=== PATIENT | female | born 1970 | race Caucasian/White ===

== ENCOUNTER 2017-07-08 21:06 | Emergency (ER) | payer MEDICARE, MEDICAID ==
[~2017-07-08] VITALS: Ht 160 cm; Wt 59.0 kg
[~2017-07-08 21:06] MED LIST: ACYC400T; BENZ1TAB2; ESCI10TA; QUET50TA; [UNRECOGNIZED DRUG - OTHER]
[2017-07-08 21:42] LABS: Basophils # (auto) 0.1 uL; Basophils % (auto) 1.1 % (0.0-2.0); Eosinophils # (auto) 0 uL; Eosinophils % (auto) 0.6 % (0.0-7.0); Hematocrit 37.7 % (36.0-46.0); Hemoglobin 12.7 g/dL (12.2-16.2); Lymphocytes # (auto) 1.9 uL; Lymphocytes % (auto) 35.5 % (10.0-50.0); Mean Corpuscular Hemoglobin 32.7 pg (28.0-32.0); Mean Corpuscular Hgb Conc. 33.7 g/dL (32.0-36.0); Mean Corpuscular Volume 97.1 fL (80.0-100.0); Monocytes # (auto) 0.5 uL; Monocytes % (auto) 8.9 % (0.0-12.0); Neutrophils # (auto) 2.9 uL; Neutrophils % (auto) 53.9 % (37.0-80.0); Nucleated Red Blood Cells % 0.1 %; Platelet Count (auto) 212 10^3/uL (140-450); Red Blood Cells 3.88 10^6/uL (4.0-5.20); Red Cell Distribution Width 13.4 % (11.8-14.3); White Blood Cell 5.3 10^3/uL (4.4-10.8)
[2017-07-08 21:58] LABS: Salicylate 2.3 mg/dL (2.8-20.0)
[2017-07-08 22:01] LABS: Alanine Aminotransferase 13 U/L (13-56); Albumin 3.7 g/dL (3.4-5.0); Alkaline Phosphatase 88 U/L (45-117); Anion Gap 7 (5-15); Aspartate Aminotransferase 12 U/L (15-37); BUN/Creatinine Ratio 12.8; Bilirubin, Total 0.3 mg/dL (0.2-1.0); Blood Alcohol < 3.0 mg/dL (0-5); Blood Urea Nitrogen 10 mg/dL (7-18); Calcium 8.6 mg/dL (8.5-10.1); Carbon Dioxide 28 mmol/L (21-32); Chloride 104 mmol/L (98-107); GFR African American 101 mL/min; GFR Non-African American 84 mL/min; Glucose 96 mg/dL (74-106); Potassium 3.4 mmol/L (3.5-5.1); Sodium 139 mmol/L (136-145); Total Protein 7.2 g/dL (6.4-8.2)
[2017-07-08 22:04] LABS: Acetaminophen < 2.0 ug/mL (10-30)
[2017-07-09] MEDS ORDERED: SODIUM CHLORIDE 0.9% 1,000 ML IV ONE ×2 (08:07)
[2017-07-09] MEDS ORDERED: THIAMINE HCL 100 MG/ML 2ML VIAL IV ONE (08:15)
[2017-07-09 09:04] LABS: Basophils # (auto) 0 uL; Basophils % (auto) 0.2 % (0.0-2.0); Eosinophils # (auto) 0 uL; Eosinophils % (auto) 0.8 % (0.0-7.0); Hematocrit 37.8 % (36.0-46.0); Hemoglobin 12.8 g/dL (12.2-16.2); Lymphocytes # (auto) 1.6 uL; Lymphocytes % (auto) 40.9 % (10.0-50.0); Mean Corpuscular Hemoglobin 32.9 pg (28.0-32.0); Mean Corpuscular Hgb Conc. 33.8 g/dL (32.0-36.0); Mean Corpuscular Volume 97.2 fL (80.0-100.0); Monocytes # (auto) 0.4 uL; Monocytes % (auto) 9.5 % (0.0-12.0); Neutrophils # (auto) 1.9 uL; Neutrophils % (auto) 48.6 % (37.0-80.0); Platelet Count (auto) 214 10^3/uL (140-450); Red Blood Cells 3.89 10^6/uL (4.0-5.20); Red Cell Distribution Width 13.5 % (11.8-14.3); White Blood Cell 3.9 10^3/uL (4.4-10.8)
[2017-07-09] MEDS ORDERED: PARoxetine 20 MG TAB PO ONE (09:15)
[2017-07-09 09:25] LABS: Alanine Aminotransferase 14 U/L (13-56); Albumin 3.5 g/dL (3.4-5.0); Alkaline Phosphatase 86 U/L (45-117); Anion Gap 8 (5-15); Aspartate Aminotransferase 12 U/L (15-37); BUN/Creatinine Ratio 13.8; Bilirubin, Total 0.5 mg/dL (0.2-1.0); Blood Alcohol < 3.0 mg/dL (0-5); Blood Urea Nitrogen 9 mg/dL (7-18); Calcium 8.7 mg/dL (8.5-10.1); Carbon Dioxide 26 mmol/L (21-32); Chloride 105 mmol/L (98-107); GFR African American 125 mL/min; GFR Non-African American 103 mL/min; Glucose 95 mg/dL (74-106); Potassium 3.4 mmol/L (3.5-5.1); Sodium 139 mmol/L (136-145)
[2017-07-09 12:14] VITALS: BP 129/77
[2017-07-09 13:10] LABS: Alcohol, Urine < 3.0 mg/dL (0-5); Amphetamine Screen, Urine POSITIVE (NEGATIVE); Barbiturate Scree,Urine NEGATIVE (NEGATIVE); Benzodiazephine Screen, Urine NEGATIVE (NEGATIVE); Cannabinoid Screen, Urine NEGATIVE (NEGATIVE); Cocaine Screen, Urine NEGATIVE (NEGATIVE); Opiate Scree,Urine NEGATIVE (NEGATIVE); Phencyclidine Screen, Urine NEGATIVE (NEGATIVE)
[2017-07-09 13:18] LABS: Urine Bacteria NONE SEEN /hpf (None Seen); Urine Blood Negative /uL (Negative); Urine Mucus FEW (None Seen); Urine Specific Gravity 1.011 (1.001-1.035); Urine WBC 1 /hpf (0 - 5)
== END 2017-07-09 15:41 | disposition home or self-care (01) ==
LOC: EDBD 21:06 → ER 21:08
DX: F20.9 Schizophrenia, unspecified (principal); E87.6 Hypokalemia; F32.9 Major depressive disorder, single episode, unspecified; F41.9 Anxiety disorder, unspecified; F17.210 Nicotine dependence, cigarettes, uncomplicated
CPT/HCPCS: 36415; 80053; 80307; 80320; 80329; 81001; 85025; 96361; 96374; 99285; J3411; J7030

== ENCOUNTER 2017-07-24 17:45 | Emergency (ER) | payer MEDICARE, MEDICAID ==
[~2017-07-24] VITALS: Ht 160 cm; Wt 54.4 kg
[2017-07-24] MEDS ORDERED: diphenhdrAMINE HCL 50 MG/1 ML VL IM ONE (18:00)
[2017-07-24] MEDS ORDERED: HALOPERIDOL LACTATE 5 MG/ML INJ VIAL IM ONE (18:00)
[2017-07-24] MEDS ORDERED: LORazepam 2MG/ML-1ML VIAL IM ONE (18:00)
[2017-07-24 18:52] LABS: Basophils # (auto) 0.2 uL; Basophils % (auto) 1.5 % (0.0-2.0); Eosinophils # (auto) 0 uL; Eosinophils % (auto) 0.3 % (0.0-7.0); Hematocrit 34.9 % (36.0-46.0); Hemoglobin 11.6 g/dL (12.2-16.2); Lymphocytes # (auto) 1.9 uL; Lymphocytes % (auto) 18.6 % (10.0-50.0); Mean Corpuscular Hemoglobin 31.9 pg (28.0-32.0); Mean Corpuscular Hgb Conc. 33.4 g/dL (32.0-36.0); Mean Corpuscular Volume 95.5 fL (80.0-100.0); Monocytes # (auto) 0.8 uL; Monocytes % (auto) 7.8 % (0.0-12.0); Neutrophils # (auto) 7.4 uL; Neutrophils % (auto) 71.8 % (37.0-80.0); Nucleated Red Blood Cells % 0.1 %; Platelet Count (auto) 281 10^3/uL (140-450); Red Blood Cells 3.65 10^6/uL (4.0-5.20); Red Cell Distribution Width 13.3 % (11.8-14.3); White Blood Cell 10.3 10^3/uL (4.4-10.8)
[2017-07-24 19:09] LABS: Anion Gap 12 (5-15); BUN/Creatinine Ratio 13.6; Blood Alcohol < 3.0 mg/dL (0-5); Blood Urea Nitrogen 8 mg/dL (7-18); Calcium 8.8 mg/dL (8.5-10.1); Carbon Dioxide 25 mmol/L (21-32); Chloride 99 mmol/L (98-107); GFR African American 140 mL/min; GFR Non-African American 116 mL/min; Glucose 103 mg/dL (74-106); Potassium 3.1 mmol/L (3.5-5.1); Sodium 136 mmol/L (136-145)
[2017-07-24] MEDS ORDERED: POTASSIUM CHL 20 Meq TABLET PO ONE (20:15)
[2017-07-24] MEDS ORDERED: SODIUM CHLORIDE 0.9% 500 ML IV ONE (23:30)
[2017-07-25] MEDS ORDERED: SODIUM CHLORIDE 0.9% 500 ML IV ONE (04:00)
[2017-07-25 06:54] VITALS: BP 108/59
== END 2017-07-25 07:00 | disposition left against medical advice (07) ==
LOC: EDBD 17:45 → ER 17:45
DX: F20.9 Schizophrenia, unspecified (principal); E87.6 Hypokalemia; F15.90 Other stimulant use, unspecified, uncomplicated; F41.9 Anxiety disorder, unspecified; F32.9 Major depressive disorder, single episode, unspecified; F17.210 Nicotine dependence, cigarettes, uncomplicated; F12.10 Cannabis abuse, uncomplicated; Z79.2 Long term (current) use of antibiotics; Z79.899 Other long term (current) drug therapy; Z53.29 Procedure and treatment not carried out because of patient's decision for other reasons
CPT/HCPCS: 36415; 80048; 80320; 85025; 96360; 96361; 96372; 99285; J1200; J1630; J2060

== ENCOUNTER 2018-01-28 21:51 | Emergency (ER) | payer MEDICARE, MEDICAID ==
[~2018-01-28] VITALS: Ht 162.6 cm; Wt 56.7 kg
[2018-01-29 08:57] LABS: Basophils # (auto) 0 uL; Basophils % (auto) 0.7 % (0.0-2.0); Eosinophils # (auto) 0.1 uL; Eosinophils % (auto) 1.3 % (0.0-7.0); Hematocrit 38.2 % (36.0-46.0); Hemoglobin 13.1 g/dL (12.2-16.2); Lymphocytes # (auto) 1.6 uL; Lymphocytes % (auto) 37.6 % (10.0-50.0); Mean Corpuscular Hemoglobin 33.9 pg (28.0-32.0); Mean Corpuscular Hgb Conc. 34.2 g/dL (32.0-36.0); Mean Corpuscular Volume 99.1 fL (80.0-100.0); Monocytes # (auto) 0.4 uL; Neutrophils # (auto) 2.2 uL; Neutrophils % (auto) 51.4 % (37.0-80.0); Nucleated Red Blood Cells % 0.1 %; Platelet Count (auto) 185 10^3/uL (140-450); Red Blood Cells 3.85 10^6/uL (4.0-5.20); Red Cell Distribution Width 13.6 % (11.8-14.3); White Blood Cell 4.3 10^3/uL (4.4-10.8)
[2018-01-29 09:14] LABS: Albumin 3.3 g/dL (3.4-5.0); BUN/Creatinine Ratio 12.1; Calcium 9.2 mg/dL (8.5-10.1); Potassium 3.3 mmol/L (3.5-5.1)
[2018-01-29 09:15] LABS: Salicylate 1.9 mg/dL (2.8-20.0)
[2018-01-29 09:16] LABS: Bilirubin, Total 0.5 mg/dL (0.2-1.0); Total Protein 6.5 g/dL (6.4-8.2)
[2018-01-29 09:22] LABS: Acetaminophen < 2.0 ug/mL (10-30)
[2018-01-29 10:39] LABS: Alcohol, Urine < 3.0 mg/dL (0-5); Amphetamine Screen, Urine NEGATIVE (NEGATIVE); Barbiturate Scree,Urine NEGATIVE (NEGATIVE); Benzodiazephine Screen, Urine NEGATIVE (NEGATIVE); Cannabinoid Screen, Urine NEGATIVE (NEGATIVE); Cocaine Screen, Urine NEGATIVE (NEGATIVE); Opiate Scree,Urine NEGATIVE (NEGATIVE); Phencyclidine Screen, Urine NEGATIVE (NEGATIVE)
[2018-01-29 10:46] LABS: Urine Bacteria FEW /hpf (None Seen); Urine Blood Negative /uL (Negative); Urine Specific Gravity 1.003 (1.001-1.035); Urine WBC 1 /hpf (0 - 5)
[2018-01-29] MEDS ORDERED: QUEtiapine FUMARATE 100 MG TAB ONE (22:07)
[2018-01-29] MEDS: QUEtiapine FUMARATE 100 MG TAB PO SCH (22:11)
[2018-01-30] MEDS: CITALOPRAM HYDROBR 20 MG TAB PO SCH (17:30)
[2018-01-30] MEDS ORDERED: HALOPERIDOL LACTATE 5 MG/ML INJ VIAL IM ONE (20:45)
[2018-01-30] MEDS ORDERED: diphenhdrAMINE HCL 50 MG/1 ML VL IM ONE (20:45)
[2018-01-30] MEDS ORDERED: LORazepam 2MG/ML-1ML VIAL IM ONE (20:45)
[2018-01-31] MEDS: CITALOPRAM HYDROBR 20 MG TAB PO SCH (10:00)
[2018-01-31] MEDS: QUEtiapine FUMARATE 100 MG TAB PO SCH (23:33)
[2018-02-01] MEDS: CITALOPRAM HYDROBR 20 MG TAB PO SCH (10:22)
[2018-02-01 18:46] VITALS: BP 110/62
== END 2018-02-01 18:42 | disposition short-term general hospital (02) ==
LOC: EDBD 21:51 → ER 22:04
DX: R45.851 Suicidal ideations (principal); F41.9 Anxiety disorder, unspecified; F32.9 Major depressive disorder, single episode, unspecified; F20.9 Schizophrenia, unspecified; F17.210 Nicotine dependence, cigarettes, uncomplicated
CPT/HCPCS: 36415; 80053; 80307; 80329; 81001; 85025; 96372; 99285; J7030

== ENCOUNTER 2018-12-02 20:45 | Emergency (ER) | payer MEDICARE, MEDICAID ==
[~2018-12-02] VITALS: Ht 157.5 cm; Wt 59.9 kg
[2018-12-02 22:07] LABS: Urine Bacteria NONE SEEN /hpf (None Seen); Urine Blood Negative /uL (Negative); Urine Mucus MODERATE (None Seen); Urine Specific Gravity 1.029 (1.001-1.035); Urine WBC 4 /hpf (0 - 5)
[2018-12-02 22:21] LABS: Basophils # (auto) 0 uL; Basophils % (auto) 0.4 % (0.0-2.0); Eosinophils # (auto) 0 uL; Eosinophils % (auto) 0.3 % (0.0-7.0); Hematocrit 39.5 % (36.0-46.0); Hemoglobin 13.4 g/dL (12.2-16.2); Lymphocytes # (auto) 1.8 uL; Lymphocytes % (auto) 26.5 % (10.0-50.0); Monocytes # (auto) 0.4 uL; Monocytes % (auto) 5.4 % (0.0-12.0); Neutrophils # (auto) 4.7 uL; Neutrophils % (auto) 67.4 % (37.0-80.0); Platelet Count (auto) 189 10^3/uL (140-450); Red Blood Cells 3.95 10^6/uL (4.0-5.20); White Blood Cell 6.9 10^3/uL (4.4-10.8)
[2018-12-02 22:21] LABS: Amphetamine Screen, Urine POSITIVE (NEGATIVE); Barbiturate Scree,Urine NEGATIVE (NEGATIVE); Benzodiazephine Screen, Urine NEGATIVE (NEGATIVE); Cannabinoid Screen, Urine NEGATIVE (NEGATIVE); Cocaine Screen, Urine NEGATIVE (NEGATIVE); Opiate Scree,Urine NEGATIVE (NEGATIVE); Phencyclidine Screen, Urine NEGATIVE (NEGATIVE)
[2018-12-02 22:36] LABS: Albumin 3.9 g/dL (3.4-5.0); Calcium 8.9 mg/dL (8.5-10.1); Salicylate 3.8 mg/dL (2.8-20.0)
[2018-12-02 22:38] LABS: Bilirubin, Total 0.4 mg/dL (0.2-1.0); Total Protein 7.5 g/dL (6.4-8.2)
[2018-12-02 22:42] LABS: Acetaminophen < 2.0 ug/mL (10-30)
[2018-12-02 22:52] LABS: Potassium 2.9 mmol/L (3.5-5.1)
[2018-12-03] MEDS ORDERED: POTASSIUM EFFERVESENT TAB 25 MEQ PO ONE
[2018-12-03] MEDS ORDERED: HALOPERIDOL 5 MG TAB PO PRN (09:15)
[2018-12-03] MEDS ORDERED: CIPROFLOXACIN HCL 500 MG TAB PO ONE (09:45)
[2018-12-03] MEDS ORDERED: LORazepam 0.5 MG TAB PO ONE ×2 (10:15)
[2018-12-03] MEDS ORDERED: THIAMINE HCL 100 MG TAB PO ONE (10:15)
[2018-12-03] MEDS ORDERED: MULTIPLE VITAMIN TAB PO ONE (10:15)
[2018-12-03] MEDS ORDERED: FOLIC ACID 1 MG TAB PO ONE (10:15)
[2018-12-03] MEDS ORDERED: LORazepam 0.5 MG TAB PO SCH (10:15)
[2018-12-03 14:30] VITALS: BP 95/63
[2018-12-03] MEDS ORDERED: QUEtiapine FUMARATE 100 MG TAB PO SCH (22:00)
[2018-12-04] MEDS ORDERED: FOLIC ACID 1 MG TAB PO SCH (10:00)
[2018-12-04] MEDS ORDERED: MULTIPLE VITAMIN TAB PO SCH (10:00)
[2018-12-04] MEDS ORDERED: THIAMINE HCL 100 MG TAB PO SCH (10:00)
== END 2018-12-03 14:41 | disposition short-term general hospital (02) ==
LOC: EDBD 20:45 → ER 20:49
DX: F32.9 Major depressive disorder, single episode, unspecified (principal); F20.9 Schizophrenia, unspecified; N39.0 Urinary tract infection, site not specified; F17.210 Nicotine dependence, cigarettes, uncomplicated; F12.10 Cannabis abuse, uncomplicated; F15.10 Other stimulant abuse, uncomplicated
CPT/HCPCS: 36415; 80053; 80307; 80329; 81001; 85025

== ENCOUNTER 2018-12-31 13:44 | Emergency (ER) | payer MEDICARE, MEDICAID ==
[~2018-12-31] VITALS: Ht 162.6 cm; Wt 56.7 kg
[2018-12-31 14:14] LABS: Basophils # (auto) 0 uL; Eosinophils # (auto) 0 uL; Eosinophils % (auto) 0.3 % (0.0-7.0); Hematocrit 35.9 % (36.0-46.0); Hemoglobin 12.5 g/dL (12.2-16.2); Lymphocytes # (auto) 1.1 uL; Lymphocytes % (auto) 26.4 % (10.0-50.0); Mean Corpuscular Hemoglobin 34.4 pg (28.0-32.0); Mean Corpuscular Hgb Conc. 34.8 g/dL (32.0-36.0); Mean Corpuscular Volume 98.9 fL (80.0-100.0); Monocytes # (auto) 0.3 uL; Monocytes % (auto) 8.1 % (0.0-12.0); Neutrophils # (auto) 2.6 uL; Neutrophils % (auto) 64.2 % (37.0-80.0); Nucleated Red Blood Cells % 0.1 %; Platelet Count (auto) 185 10^3/uL (140-450); Red Blood Cells 3.63 10^6/uL (4.0-5.20); White Blood Cell 4.1 10^3/uL (4.4-10.8)
[2018-12-31 14:30] LABS: Alanine Aminotransferase 17 U/L (13-56); Albumin 3.4 g/dL (3.4-5.0); Anion Gap 8 (5-15); Aspartate Aminotransferase 16 U/L (15-37); Blood Urea Nitrogen 8 mg/dL (7-18); Calcium 8.7 mg/dL (8.5-10.1); Carbon Dioxide 25 mmol/L (21-32); Chloride 110 mmol/L (98-107); Glucose 109 mg/dL (74-106); Magnesium 1.8 mg/dL (1.6-2.6); Sodium 143 mmol/L (136-145)
[2018-12-31 14:34] LABS: Potassium 2.9 mmol/L (3.5-5.1)
[2018-12-31 14:35] LABS: Alkaline Phosphatase 72 U/L (45-117); BUN/Creatinine Ratio 13.3; Bilirubin, Total 0.2 mg/dL (0.2-1.0); GFR African American 136 mL/min; GFR Non-African American 112 mL/min; Total Protein 6.9 g/dL (6.4-8.2)
[2018-12-31] MEDS ORDERED: POTASSIUM CHL 20 Meq TABLET PO ONE (15:30)
[2018-12-31] MEDS ORDERED: SODIUM CHLORIDE 0.9% 1,000 ML IV ONE (17:00)
[2018-12-31] MEDS ORDERED: THIAMINE 100mg/ml INJ (200mg/2ml VIAL) IV ONE (17:15)
[2018-12-31] MEDS ORDERED: LORazepam 2MG/ML-1ML VIAL IV ONE (17:15)
[2018-12-31] MEDS ORDERED: POTASSIUM EFFERVESENT TAB 25 MEQ PO ONE (17:45)
[2018-12-31 18:27] VITALS: BP 148/87
== END 2018-12-31 18:50 | disposition home or self-care (01) ==
LOC: ER 13:44 → EDBD 13:44 → EDUNIT# 13:44 → ER 18:50
DX: F10.10 Alcohol abuse, uncomplicated (principal); E87.6 Hypokalemia; F17.210 Nicotine dependence, cigarettes, uncomplicated; F12.10 Cannabis abuse, uncomplicated; F15.10 Other stimulant abuse, uncomplicated; F41.9 Anxiety disorder, unspecified; F32.9 Major depressive disorder, single episode, unspecified; F20.9 Schizophrenia, unspecified
CPT/HCPCS: 36415; 70450; 71046; 80053; 80320; 83735; 84484; 85025; 93005; 96361; 96374; 96375; 99284; J2060; J3411; J7030

== ENCOUNTER 2019-02-04 12:43 | Emergency (ER) | payer MEDICARE, MEDICAID ==
[~2019-02-04] VITALS: Ht 162.6 cm; Wt 56.7 kg
[~2019-02-04 12:43] MED LIST changes: -ACYC400T; +[UNRECOGNIZED DRUG - CODE]
[2019-02-04 13:18] VITALS: BP 98/56
== END 2019-02-04 13:46 | disposition home or self-care (01) ==
LOC: ER 12:43
DX: F20.9 Schizophrenia, unspecified (principal); F41.9 Anxiety disorder, unspecified; F17.210 Nicotine dependence, cigarettes, uncomplicated; F12.10 Cannabis abuse, uncomplicated; F15.10 Other stimulant abuse, uncomplicated; F32.9 Major depressive disorder, single episode, unspecified; Z76.0 Encounter for issue of repeat prescription

== ENCOUNTER 2020-03-11 10:56 | Emergency (ER) | payer MEDICARE, MEDICAID ==
[~2020-03-11] VITALS: Ht 162.6 cm; Wt 63.5 kg
[2020-03-11] MEDS ORDERED: SODIUM CHLORIDE 0.9% 1,000 ML IVB ONE (11:30)
[2020-03-11] MEDS ORDERED: diphenhdrAMINE HCL 50 MG/1 ML VL IV ONE (12:30)
[2020-03-11] MEDS ORDERED: HALOPERIDOL LACTATE 5 MG/ML INJ VIAL IM ONE (12:30)
[2020-03-11] MEDS ORDERED: LORazepam 2MG/ML-1ML VIAL IM ONE (12:30)
[2020-03-11 12:37] LABS: Basophils # (auto) 0.1 10 ^3/uL (0-0.2); Basophils % (auto) 1.1 % (0.0-2.0); Eosinophils # (auto) 0 10 ^3/uL (0-0.8); Eosinophils % (auto) 0.2 % (0.0-7.0); Hematocrit 36.2 % (36.0-46.0); Hemoglobin 12.5 g/dL (12.2-16.2); Lymphocytes # (auto) 1.4 10 ^3/uL (0.4-5.4); Lymphocytes % (auto) 26.7 % (10.0-50.0); Mean Corpuscular Hemoglobin 33.6 pg (28.0-32.0); Mean Corpuscular Hgb Conc. 34.4 g/dL (32.0-36.0); Mean Corpuscular Volume 97.5 fL (80.0-100.0); Monocytes # (auto) 0.4 10 ^3/uL (0-1.3); Monocytes % (auto) 7.3 % (0.0-12.0); Neutrophils # (auto) 3.3 10 ^3/uL (1.6-8.6); Neutrophils % (auto) 64.7 % (37.0-80.0); Nucleated Red Blood Cells % 0.1 %; Platelet Count (auto) 211 10^3/uL (140-450); Red Blood Cells 3.72 10^6/uL (4.0-5.20); Red Cell Distribution Width 13.3 % (11.8-14.3); White Blood Cell 5.2 10^3/uL (4.4-10.8)
[2020-03-11 12:45] LABS: INR 0.99 (0.9-1.15); Partial Thromboplastin Time 28.9 sec (23.0-31.2)
[2020-03-11 12:55] LABS: Albumin 2.8 g/dL (3.4-5.0); Anion Gap 4 (5-15); Blood Alcohol < 3.0 mg/dL (0-5); Blood Urea Nitrogen 6 mg/dL (7-18); Calcium 8.2 mg/dL (8.5-10.1); Carbon Dioxide 29 mmol/L (21-32); Chloride 105 mmol/L (98-107); Glucose 98 mg/dL (74-106); Sodium 138 mmol/L (136-145)
[2020-03-11 12:56] LABS: Acetaminophen < 2.0 ug/mL (10-30); Salicylate 2.6 mg/dL (2.8-20.0)
[2020-03-11 13:03] LABS: Alanine Aminotransferase 20 U/L (13-56); Alkaline Phosphatase 77 U/L (45-117); Aspartate Aminotransferase 20 U/L (15-37); BUN/Creatinine Ratio 10.3; Bilirubin, Total 0.3 mg/dL (0.2-1.0); GFR African American 141 mL/min; GFR Non-African American 116 mL/min
[2020-03-11] MEDS ORDERED: POTASSIUM CHL 20 Meq TABLET PO ONE (16:45)
[2020-03-12 11:35] VITALS: BP 99/75
== END 2020-03-12 10:03 | disposition short-term general hospital (02) ==
LOC: EDBD 10:56 → ER 10:56
DX: R42 Dizziness and giddiness (principal); E87.6 Hypokalemia; F23 Brief psychotic disorder; R45.851 Suicidal ideations; F32.9 Major depressive disorder, single episode, unspecified; F41.9 Anxiety disorder, unspecified; F17.210 Nicotine dependence, cigarettes, uncomplicated; Z98.890 Other specified postprocedural states; Z20.828 Contact with and (suspected) exposure to other viral communicable diseases
CPT/HCPCS: 36415; 70450; 71045; 80053; 80320; 80329; 82962; 83735; 84484; 85025; 85610; 85730; 87426; 96361; 96372; 96374; 99285; J1200; J1630; J2060

== ENCOUNTER 2020-10-10 17:28 | Emergency (ER) | payer MEDICARE, MEDICAID ==
[~2020-10-10] VITALS: Ht 162.6 cm; Wt 54.4 kg
[2020-10-10 17:36] VITALS: BP 98/65
[2020-10-10 19:50] LABS: Basophils # (auto) 0.1 10 ^3/uL (0-0.2); Basophils % (auto) 0.8 % (0.0-2.0); Eosinophils # (auto) 0 10 ^3/uL (0-0.8); Eosinophils % (auto) 0.4 % (0.0-7.0); Hematocrit 39.8 % (36.0-46.0); Hemoglobin 13.8 g/dL (12.2-16.2); Lymphocytes # (auto) 2.2 10 ^3/uL (0.4-5.4); Lymphocytes % (auto) 34.9 % (10.0-50.0); Mean Corpuscular Hemoglobin 33.5 pg (28.0-32.0); Mean Corpuscular Hgb Conc. 34.6 g/dL (32.0-36.0); Mean Corpuscular Volume 96.9 fL (80.0-100.0); Monocytes # (auto) 0.4 10 ^3/uL (0-1.3); Monocytes % (auto) 6.8 % (0.0-12.0); Neutrophils # (auto) 3.6 10 ^3/uL (1.6-8.6); Neutrophils % (auto) 57.1 % (37.0-80.0); Platelet Count (auto) 235 10^3/uL (140-450); Red Cell Distribution Width 13.1 % (11.8-14.3); White Blood Cell 6.3 10^3/uL (4.4-10.8)
[2020-10-10 20:07] LABS: Albumin 3.9 g/dL (3.4-5.0); Calcium 9.4 mg/dL (8.5-10.1); Potassium 3.9 mmol/L (3.5-5.1)
[2020-10-10 20:10] LABS: Bilirubin, Total 0.4 mg/dL (0.2-1.0); Salicylate 2.4 mg/dL (2.8-20.0); Total Protein 7.6 g/dL (6.4-8.2)
[2020-10-10 20:17] LABS: Acetaminophen < 2.0 ug/mL (10-30)
== END 2020-10-10 22:47 | disposition left against medical advice (07) ==
LOC: ER 17:28
DX: Z76.0 Encounter for issue of repeat prescription (principal); Z53.21 Procedure and treatment not carried out due to patient leaving prior to being seen by health care provider
CPT/HCPCS: 36415; 80053; 80320; 80329; 85025

== ENCOUNTER 2021-07-16 00:23 | Emergency (ER) | payer MEDICARE, MEDICAID ==
[~2021-07-16] VITALS: Ht 167.6 cm; Wt 63.5 kg
[2021-07-16 01:31] LABS: Basophils # (auto) 0 10 ^3/uL (0-0.2); Basophils % (auto) 0.3 % (0.0-2.0); Eosinophils # (auto) 0.1 10 ^3/uL (0-0.8); Eosinophils % (auto) 1.5 % (0.0-7.0); Hematocrit 35.9 % (36.0-46.0); Hemoglobin 12.2 g/dL (12.2-16.2); Lymphocytes # (auto) 1.8 10 ^3/uL (0.4-5.4); Lymphocytes % (auto) 43.8 % (10.0-50.0); Mean Corpuscular Hemoglobin 31.9 pg (28.0-32.0); Mean Corpuscular Hgb Conc. 33.9 g/dL (32.0-36.0); Monocytes # (auto) 0.4 10 ^3/uL (0-1.3); Monocytes % (auto) 10.6 % (0.0-12.0); Neutrophils # (auto) 1.8 10 ^3/uL (1.6-8.6); Neutrophils % (auto) 43.8 % (37.0-80.0); Nucleated Red Blood Cells % 0.2 %; Red Blood Cells 3.81 10^6/uL (4.0-5.20); Red Cell Distribution Width 13.2 % (11.8-14.3)
[2021-07-16 01:55] LABS: Albumin 3.7 g/dL (3.4-5.0); BUN/Creatinine Ratio 17.2; Calcium 9.1 mg/dL (8.5-10.1)
[2021-07-16 01:57] LABS: Bilirubin, Total 0.4 mg/dL (0.2-1.0); Total Protein 7.1 g/dL (6.4-8.2)
[2021-07-16 03:29] LABS: Urine Bacteria MOD /hpf (None Seen); Urine Blood Negative /uL (Negative); Urine Mucus FEW (None Seen); Urine WBC 13 /hpf (0 - 5)
[2021-07-16 03:44] LABS: Alcohol, Urine < 3.0 mg/dL (0-10); Amphetamine Screen, Urine POSITIVE (NEGATIVE); Barbiturate Scree,Urine NEGATIVE (NEGATIVE); Benzodiazephine Screen, Urine NEGATIVE (NEGATIVE); Cannabinoid Screen, Urine NEGATIVE (NEGATIVE); Cocaine Screen, Urine NEGATIVE (NEGATIVE); Opiate Scree,Urine NEGATIVE (NEGATIVE)
[2021-07-16] MEDS ORDERED: QUEtiapine FUMARATE 25 MG TAB PO ONE (03:45)
[2021-07-16 03:51] LABS: Phencyclidine Screen, Urine NEGATIVE (NEGATIVE)
[2021-07-16] MEDS ORDERED: LORazepam 0.5 MG TAB PO ONE ×2 (04:15→08:45)
[2021-07-16] MEDS ORDERED: NICOTINE 14 MG/24HR TOPICAL PATCH TD ONE (04:45)
[2021-07-16] MEDS ORDERED: CEPHALEXIN 250 MG CAP PO ONE (07:00)
[2021-07-16 10:33] VITALS: BP 110/75
== END 2021-07-16 10:37 | disposition left against medical advice (07) ==
LOC: ER 00:24
DX: R44.0 Auditory hallucinations (principal); R20.9 Unspecified disturbances of skin sensation; F32.9 Major depressive disorder, single episode, unspecified; F17.210 Nicotine dependence, cigarettes, uncomplicated
CPT/HCPCS: 36415; 80053; 80307; 81001; 85025; 87086

== ENCOUNTER 2021-11-02 15:40 | Emergency (ER) | payer MEDICARE, MEDICAID ==
[~2021-11-02] VITALS: Ht 162.6 cm; Wt 54.4 kg
[2021-11-02 17:04] LABS: Urine Bacteria FEW /hpf (None Seen); Urine Blood Negative /uL (Negative); Urine Hyaline Cast FEW /lpf (0 - 2); Urine Specific Gravity 1.014 (1.001-1.035); Urine WBC 11 /hpf (0 - 5)
[2021-11-02 17:06] LABS: Alcohol, Urine < 3.0 mg/dL (0-10); Amphetamine Screen, Urine POSITIVE (NEGATIVE); Barbiturate Scree,Urine NEGATIVE (NEGATIVE); Benzodiazephine Screen, Urine NEGATIVE (NEGATIVE); Cannabinoid Screen, Urine NEGATIVE (NEGATIVE); Cocaine Screen, Urine NEGATIVE (NEGATIVE); Opiate Scree,Urine NEGATIVE (NEGATIVE); Phencyclidine Screen, Urine NEGATIVE (NEGATIVE)
[2021-11-02 17:39] LABS: Albumin 3.4 g/dL (3.4-5.0); BUN/Creatinine Ratio 13.5; Calcium 9.1 mg/dL (8.5-10.1); Potassium 3.6 mmol/L (3.5-5.1)
[2021-11-02 17:41] LABS: Basophils # (auto) 0.1 10 ^3/uL (0-0.2); Basophils % (auto) 1.9 % (0.0-2.0); Eosinophils # (auto) 0 10 ^3/uL (0-0.8); Eosinophils % (auto) 0.5 % (0.0-7.0); Hematocrit 37.6 % (36.0-46.0); Hemoglobin 12.9 g/dL (12.2-16.2); Lymphocytes # (auto) 1.4 10 ^3/uL (0.4-5.4); Mean Corpuscular Hemoglobin 32.8 pg (28.0-32.0); Mean Corpuscular Hgb Conc. 34.4 g/dL (32.0-36.0); Mean Corpuscular Volume 95.3 fL (80.0-100.0); Monocytes # (auto) 0.5 10 ^3/uL (0-1.3); Monocytes % (auto) 10.9 % (0.0-12.0); Neutrophils # (auto) 2.6 10 ^3/uL (1.6-8.6); Neutrophils % (auto) 56.7 % (37.0-80.0); Nucleated Red Blood Cells % 0.2 %; Red Blood Cells 3.94 10^6/uL (4.0-5.20); Red Cell Distribution Width 13.6 % (11.8-14.3); White Blood Cell 4.6 10^3/uL (4.4-10.8)
[2021-11-02 17:42] LABS: Bilirubin, Total 0.2 mg/dL (0.2-1.0); Total Protein 6.8 g/dL (6.4-8.2)
[2021-11-02] MEDS ORDERED: LORazepam 0.5 MG TAB PO ONE (18:15)
[2021-11-02] MEDS ORDERED: diphenhdrAMINE HCL 25 MG CAP PO ONE (20:00)
[2021-11-02] MEDS ORDERED: QUEtiapine FUMARATE 100 MG TAB PO SCH (22:00)
[2021-11-03] MEDS ORDERED: hydrOXYzine 25 MG TAB or CAP PO PRN (18:00)
[2021-11-03] MEDS: QUEtiapine FUMARATE 100 MG TAB PO SCH (22:50)
[2021-11-04] MEDS: QUEtiapine FUMARATE 100 MG TAB PO SCH ×2 (10:14→23:18)
[2021-11-05] MEDS: QUEtiapine FUMARATE 100 MG TAB PO SCH ×2 (08:49→22:29)
[2021-11-05] MEDS ORDERED: QUEtiapine FUMARATE 100 MG TAB ONE (22:22)
[2021-11-06] MEDS: QUEtiapine FUMARATE 100 MG TAB PO SCH (07:00)
[2021-11-06 07:20] VITALS: BP 120/78
[2021-11-06] MEDS ORDERED: ESCI-28 PO ×2 (07:33→08:43)
[2021-11-06] MEDS ORDERED: QUET1TAB88 PO ×2 (07:33→08:43)
== END 2021-11-06 08:25 | disposition home or self-care (01) ==
LOC: ER 15:40
DX: F29 Unspecified psychosis not due to a substance or known physiological condition (principal); F41.9 Anxiety disorder, unspecified; F32.9 Major depressive disorder, single episode, unspecified; F20.9 Schizophrenia, unspecified; F17.210 Nicotine dependence, cigarettes, uncomplicated
CPT/HCPCS: 36415; 80053; 80307; 81001; 81025; 85025

== ENCOUNTER 2025-02-07 12:54 | Emergency (ER) | payer MEDICARE, MEDICAID ==
[~2025-02-07] VITALS: Ht 162.6 cm; Wt 48.6 kg
[~2025-02-07 12:54] MED LIST changes: +ACYC1TAB; -BENZ1TAB2; +BENZ1TAB6; +ESCI1TAB36 PO; +QUET1TAB88 PO; -[UNRECOGNIZED DRUG - CODE]
--- NOTE | 2025-02-07 13:41 | ED.PDOC ---
Eye-HPI HPI Comments This is a 54-year-old female, with a past MHx of anxiety and depression, who presents to the ED with a chief complaint of pain to tooth #3 for x3 days. Patient states she went to the dentist's and was refused care due to an license. Patient describes the pain as throbbing and achy. Patient denies any trauma or injury to the jaw. Patient has no further complaints at this time and otherwise denies further associated symptoms of throat pain, cough, nasal congestion, fever, or chills. Chief Complaint: Tooth Pain Time Seen by MD: 13:37 Primary Care Provider: UNKNOWN Reviewed Notes: Nurses Notes, Medications, Allergies Allergies: Coded Allergies: NO KNOWN ALLERGIES (Unverified , 12/02/18) Home Meds Active Scripts Acetaminophen (Acetaminophen) 325 Mg Tab, 325 MG PO Q6HP PRN for 10 Days, #40 TAB 0 Refills Prov:JANE ERNANDEZ DURABILITY ENGINEER 02/07/25 Amoxicillin Trihydrate (Amoxicillin) 500 Mg Tab, 1 TAB PO BID for 10 Days, #20 TAB 0 Refills Prov:JANE ERNANDEZ DURABILITY ENGINEER 02/07/25 Quetiapine Fumarate (Quetiapine Fumarate ER) 400 Mg Tab, 400 MG PO BID for 15 Days, #30 TAB Prov:KERVIN THOMPSON MD 11/06/21 Escitalopram Oxalate (ESCITALOPRAM OXALATE) 10 Mg Tab, 1 TAB PO DAILY for 30 Days, #30 TAB 3 Refills Prov:KERVIN THOMPSON MD 11/06/21 Reported Medications [Benztropine Mesy1 Mg] (Benztropine Mesylate) 1 MG TAB No Conflict Check, MG 09/30/12 [[id number] Mg] (Zovirax) 400 MG TB No Conflict Check, MG 09/30/12 [Doxycycl Hyc Cap 100MG] No Conflict Check 09/30/12 Quetiapine Fumerate (Seroquel) 50 Mg Tab 06/24/11 Escitalopram Oxalate (Lexapro) 10 Mg Tab 06/24/11 Information Source: Patient Mode of Arrival: Ambulatory Timing: Days Duration: Since onset Prehospital treatment: None Quality: Pain Mouth: Right, Upper Onset: Spontaneous Associated signs and symptoms: Tooth Pain Past Medical History PAST MEDICAL HISTORY: Anxiety, Depression, Schizophrenia Surgical History: SKY [employer] YARDER History: No Pertinent SKY [employer] YARDER History Family History Family History: Unobtainable Social History Smoker: Cigarettes Alcohol: Heavy Drugs: Marijuana, Methamphetamine Lives In: Home Constitutional: denies: chills, diaphoresis, fatigue, fever, malaise, sweats, weakness, others EENTM: reports: others (tooth pain ); denies: blurred vision, double vision, ear bleeding, ear discharge, ear drainage, ear pain, ear ringing, eye pain, eye redness, hearing loss, mouth pain, mouth swelling, nasal discharge, nose bleeding, nose congestion, nose pain, photophobia, tearing, throat pain, throat swelling, voice changes Respiratory: denies: cough, hemoptysis, orthopnea, SOB at rest, shortness of breath, SOB with excertion, stridor, wheezing, others Cardiovascular: denies: chest pain, dizzy spells, diaphoresis, Dyspnea on exertion, edema, irregular heart beat, left arm pain, lightheadedness, palpitations, PND, syncope, others Gastrointestinal: denies: abdomen distended, abdominal pain, blood streaked bowels, constipated, diarrhea, dysphagia, difficulty swallowing, hematemesis, melena, nausea, poor appetite, poor fluid intake, rectal bleeding, rectal pain, vomiting, others Genitourinary: denies: abnormal vagina bleeding, burning, dyspareunia, dysuria, flank pain, frequency, hematuria, incontinence, pain, , vagina discharge, urgency, others Neurological: denies: dizziness, fainting, headache, left sided numbness, left sided weakness, numbness, paresthesia, pre-existing deficit, right sided numbness, right sided weakness, seizure, speech problems, tingling, tremors, weakness, others Musculoskeletal: denies: back pain, gout, joint pain, joint swelling, muscle pain, muscle stiffness, neck pain, others Integumetry: denies: bruises, change in color, change in hair/nails, dryness, laceration, lesions, lumps, rash, wounds, others Allergic/Immunocompromised: denies: Difficulty Healing, Frequent Infections, Hives, Itching, others Hematologic/Lymphatic: denies: anemia, blood clots, easy bleeding, easy bruising, swollen glands, others Endocrine: denies: excessive hunger, excessive sweating, excessive thirst, excessive urination, flushing, intolerance to cold, intolerance to heat, unexplained weight gain, unexplained weight loss, others Psychiatric: denies: anxiety, bipolar disorder, depression, hopeless, panic disorder, schizophrenia, sleepless, suicidal, others All Other Systems: Reviewed and Negative Physical Exam General Appearance: Mild Distress, Normal HEENT: Normal ENT Inspection, Pharynx Normal, TMs Normal, Other (tooth 3 is intact ) Neck: Full Range of Motion, Non-Tender, Normal, Normal Inspection Respiratory: Chest Non-Tender, Lungs Clear, No Accessory Muscle Use, No Respiratory Distress, Normal Breath Sounds Cardiovascular: No Edema, No JVD, No Murmur, No Gallop, Normal Peripheral Pulses, Regular Rate/Rhythm Breast Exam: Deferred Gastrointestinal: No Organomegaly, Non Tender, No Pulsatile Mass, Normal Bowel Sounds, Soft Genitalia: Deferred Pelvic: Deferred Rectal: Deferred Extremities: No calf tenderness, Normal capillary refill, Normal inspection, Normal range of motion, Non-tender, No pedal edema Musculoskeletal : Apperance: Normal Neurologic: Alert, buttonhole maker hand II-XII nml as Tested, No Motor Deficits, Normal Affect, Normal Mood, No Sensory Deficits Cerebellar Function: Normal Reflexes: Normal Skin: Dry, Normal Color, Warm Lymphatic: No Adenopathy Was a procedure done? Was a procedure done?: No EENT DIFF Eye: Other Sore Throat: Viral Pharyngitis X-Ray, Labs, Meds, VS Vital Signs Date Time Temp Pulse Resp B/P (MAP) Pulse Ox O2 Delivery O2 Flow Rate FiO2 02/07/25 13:57 98.3 85 16 105/79 (88) 99 98.3 02/07/25 12:56 97.8 88 16 123/72 96 97.8 X-Ray, Labs, Meds, VS Comment This is a 54-year-old female, with a past MHx of anxiety and depression, who presents to the ED with a chief complaint of right upper tooth pain for x3 days. Patient arrives alert and oriented, ABC's intact, afebrile, vital signs stable, saturating well in room air Disposition: Discharge home. Discussed return precautions for odontogenic infections and other dental pain emergencies. Will provide dental clinic list. Afebrile, vitals within normal limits. Exam as above and airway fully patent and in no respiratory distress. The patient has no neck swelling, no dysphonia or hoarseness, no lymphadenopathy. No trismus or swollen tongue to suggest Sammy's angina. No overt e/o peritonsillar abscess or retropharyngeal abscess. No overt e/o deep space infection; nontoxic appearing and tolerating PO. Non-focal neuro exam with low suspicion for Lemierres. No pain with percussion, low suspicion for periapical abscess. No mastoid tenderness so do not suspect mastoiditis and no pain with manipulation of ear to suggest otitis externa. Trial antibiotics with cautious return precautions discussed w/ full understanding. Additional MDM Review of External, Non-ED records: External records reviewed. Discussion with independent historian (EMS, family) history obtained from the patient/parents (if applicable) at bedside Chronic conditions affecting care: None Social determinants of health affecting care: None Consideration of admission (observation or admission): I considered escalation of care to admission for this patient, however given the reassuring workup, the patient is safe for outpatient management. Discussion with the Radiology: No Tests considered but not performed: Prescription medication considered but not given: 12 lead EKG interpretation: Images Reviewed?: Images reviewed and evaluated by me Time of 1ST Reevaluation: 14:18 Reevaluation 1ST: Unchanged Patient Education/Counseling: Diagnosis, Treatment, Need For Follow Up Family Education/Counseling: No Family Present Medical Screening: No EMC Exist At This Time SEPSIS Sepsis Screen Date sepsis recognized/suspect: Feb 07, 2025 Time Sepsis recognized/suspect: 1256 Recent Procedure: No On Antibiotic Therapy: No Respiratory Rate >20: No Heart Rate >90: No Temp<36 C (96.8 F) or >38.3 C: No SBP <90 or MAP <65 mmHG: No New Acute Mental Status Change: No Is the patient on CPAP, BIPAP,: No Vital Signs Date Time Temp Pulse Resp B/P (MAP) Pulse Ox O2 Delivery O2 Flow Rate FiO2 02/07/25 13:57 98.3 85 16 105/79 (88) 99 98.3 02/07/25 12:56 97.8 88 16 123/72 96 97.8 Departure 1 Departure Time of Disposition: 13:47 Impression: Primary Impression: Tooth pain Disposition: 01 HOME / SELF CARE / HOMELESS Condition: Stable Additional Instructions: Follow up with PCP in 1-2 days. Take medications as prescribed. Return to the ED for any new or worsening symptoms. e-Prescriptions Acetaminophen (Acetaminophen) 325 Mg Tab 325 MG PO Q6HP PRN for 10 Days, #40 TAB 0 Refills Prov: JANE ERNANDEZ NP 02/07/25 Amoxicillin Trihydrate (Amoxicillin) 500 Mg Tab 1 TAB PO BID for 10 Days, #20 TAB 0 Refills Prov: JANE ERNANDEZ NP 02/07/25 Discharged With: Self Critical Care Note Critical Care Time?: No Stability Stability form required: No Heart Score Heart Score: Heart Score Response (Comments) Value History N/A 0 EKG N/A 0 Age N/A 0 Risk Factors N/A 0 Troponin N/A 0 Total 0 I personally scribed for JANE ERNANDEZ DURABILITY ENGINEER ([email or web address]) on 02/07/25 at 13:41. Electronically submitted by Michelle Miles ([email or web address]). I personally scribed for JANE ERNANDEZ DURABILITY ENGINEER ([email or web address]) on 02/07/25 at 13:51. Electronically submitted by Michelle Miles ([email or web address]). JANE ERNANDEZ NP Feb 07, 2025 13:41
[2025-02-07] MEDS ORDERED: ACET-1881 PO (13:47)
[2025-02-07] MEDS ORDERED: AMOX500T3 PO (13:47)
[2025-02-07 13:57] VITALS: BP 105/79; PULSE 85; RESP 16; TEMP 98.3; O2SAT 99
== END 2025-02-07 13:58 | disposition home or self-care (01) ==
LOC: ER 12:54
DX: K08.89 Other specified disorders of teeth and supporting structures (principal); F17.210 Nicotine dependence, cigarettes, uncomplicated; F41.9 Anxiety disorder, unspecified; F32.A Depression, unspecified; F20.9 Schizophrenia, unspecified; F12.90 Cannabis use, unspecified, uncomplicated; F19.90 Other psychoactive substance use, unspecified, uncomplicated; Z79.899 Other long term (current) drug therapy; Z98.890 Other specified postprocedural states; Y90.9 Presence of alcohol in blood, level not specified